=== PATIENT | female | born 1990 | race African-American/Black ===

== ENCOUNTER → 2016-10-26 | Outpatient (REF) | payer OTHER | LOC: M SFHCCLAY 09:44 | PROVIDERS: ATTEND Family Medicine | DX: Z01.419 Encounter for gynecological examination (general) (routine) without abnormal findings (principal) ==

== ENCOUNTER → 2017-04-08 | Outpatient (CLI) | payer OTHER ==
--- NOTE | 2017-04-08 18:17 | REP ---
S pars abrasion the thoracic spine three views: Comparison is the scoliosis series dated 06/30/2015. There is thoracic scoliosis convex right lumbar scoliosis convex left. This is unchanged. There are no congenital vertebral anomalies. Vertebral body heights, interspacing alignment otherwise normal. Impression: Scoliosis, otherwise negative thoracic spine. Signed by Jose Bowling MD 04/08/2017 06:09 P
--- NOTE | 2017-04-08 18:21 | REP ---
Lumbar spine five views: Comparison is the scoliosis series dated 06/30/2015. There is lumbar scoliosis convex left. This is unchanged. Vertebral body heights, interspacing alignment are otherwise unremarkable. There is no spondylolysis or spondylolisthesis. The pedicles, facets and sacroiliac articulations are unremarkable. Impression: Scoliosis, otherwise negative lumbar spine. Signed by Jose Bowling MD 04/08/2017 06:13 P
== END ==
LOC: M LRY 17:36
PROVIDERS: ATTEND Nurse Practitioner Family
DX: M41.9 Scoliosis, unspecified (principal)
CPT/HCPCS: 72072; 72110; 96372; G0463; J1885